=== PATIENT | female | born 2000 | race Native Hawaiian/Other Pacific Islander ===

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

== ENCOUNTER 2019-01-01 10:42 | Emergency (ER) | payer OTHER ==
[~2019-01-01] VITALS: Ht 172.7 cm; Wt 86.2 kg
[2019-01-01 10:55] VITALS: BP 125/80; TEMP 98
== END 2019-01-01 13:40 | disposition home or self-care (01) ==
LOC: ED 10:42
DX: J06.9 Acute upper respiratory infection, unspecified (principal)
CPT/HCPCS: 87502; 87651; 99283